=== PATIENT | female | born 1995 ===

== ENCOUNTER → 2020-03-11 17:14 | Outpatient (BNVA) | payer OTHER, SELFPAY | PROVIDERS: Family Provider Nurse Practitioner Family; PCP Nurse Practitioner Family; Visit Provider Nurse Practitioner Family | DX: Z20.828 Contact with and (suspected) exposure to other viral communicable diseases (principal) | CPT/HCPCS: 87635 ==

== ENCOUNTER → 2020-07-27 09:13 | Outpatient (BNVA) | payer SELFPAY | PROVIDERS: Family Provider Nurse Practitioner Family; PCP Nurse Practitioner Family; Visit Provider Nurse Practitioner Family | DX: I10 Essential (primary) hypertension; E78.5 Hyperlipidemia, unspecified | CPT/HCPCS: 80053; 80061; 84443 ==

== ENCOUNTER → 2021-06-11 11:12 | Outpatient (BNVA) | payer OTHER, SELFPAY | PROVIDERS: Family Provider Nurse Practitioner Family; PCP Registered Nurse; Visit Provider Nurse Practitioner Family | DX: I10 Essential (primary) hypertension (principal) | CPT/HCPCS: 80053 ==

== ENCOUNTER → 2022-07-28 08:48 | Outpatient (BNVA) | payer MEDICAID, SELFPAY | PROVIDERS: Family Provider Nurse Practitioner Family; PCP Nurse Practitioner Family; Visit Provider Nurse Practitioner Family | DX: I10 Essential (primary) hypertension (principal); E78.5 Hyperlipidemia, unspecified; E03.9 Hypothyroidism, unspecified | CPT/HCPCS: 80053; 80061; 84443 ==

== ENCOUNTER → 2022-08-11 08:39 | Outpatient (BNVA) | payer MEDICAID, SELFPAY | PROVIDERS: Family Provider Nurse Practitioner Family; PCP Nurse Practitioner Family; Visit Provider Nurse Practitioner Family | DX: R73.09 Other abnormal glucose (principal) | CPT/HCPCS: 83036 ==

== ENCOUNTER → 2022-08-26 14:57 | Outpatient (BNVA) | payer MEDICAID, SELFPAY | PROVIDERS: Family Provider Nurse Practitioner Family; PCP Nurse Practitioner Family; Visit Provider Nurse Practitioner Family | DX: N92.6 Irregular menstruation, unspecified (principal); R11.0 Nausea | CPT/HCPCS: 81025 ==

== ENCOUNTER → 2024-04-28 09:02 | Outpatient (BNVA) | payer SELFPAY | PROVIDERS: Family Provider Nurse Practitioner Family; PCP Nurse Practitioner Family; Visit Provider Nurse Practitioner Family | DX: G43.909 Migraine, unspecified, not intractable, without status migrainosus (principal); R53.83 Other fatigue; E28.2 Polycystic ovarian syndrome; I10 Essential (primary) hypertension; F41.9 Anxiety disorder, unspecified; Z98.84 Bariatric surgery status | CPT/HCPCS: 80053; 80061; 82607; 84439; 84443; 85025 ==

== ENCOUNTER 2024-11-08 12:43 | Outpatient (CLI) | payer OTHER, SELFPAY ==
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
== END 2024-11-08 12:44 | disposition home or self-care (01) ==
LOC: RAD 12:43
PROVIDERS: PCP Nurse Practitioner Family; Visit Provider Nurse Practitioner Family
DX: M25.511 Pain in right shoulder (principal)
CPT/HCPCS: 73030

== ENCOUNTER → 2025-06-05 08:04 | Outpatient (BNVA) | payer SELFPAY | PROVIDERS: PCP Nurse Practitioner Family; Visit Provider Nurse Practitioner Family | DX: I10 Essential (primary) hypertension (principal); R73.09 Other abnormal glucose; R79.89 Other specified abnormal findings of blood chemistry | CPT/HCPCS: 80053; 80061; 82607; 83036 ==